=== PATIENT | female | born 1990 | race Asian ===

== ENCOUNTER 2024-09-10 02:06 | Day surgery (SDC) | payer BC, SELFPAY ==
[2024-09-04 11:29] VITALS: BMI 27.6
--- NOTE | 2024-09-04 11:36 | PC.NURSE ---
Report to the Outpatient Waiting Room, entrance under the green pavilion located off [facility], at time _1030_ on date _[id number]_. Planned Procedure Time: _1230_.? Time changes happen often and if your time is changed the preop area will call you the afternoon before. - You and your visitor will be asked to self-screen and do not enter if you have any COVID symptoms. Please call surgeon if you need to reschedule. - A mask is optional within the hospital at this time. Patients may have clear liquids (water, carbonated beverages, clear teas, apple juice) until 3 hours prior to surgery with a maximum of 20 ounces. - No food from midnight until time of surgery and no smoking Take only the following medications with a SIP of water on the morning of surgery: ___None___ DO NOT STOP ANY OF YOUR OTHER PRESCRIPTION MEDICATIONS PRIOR TO SURGERY EXCEPT THE FOLLOWING Medications to discontinue per physician ____None Date to take last dose Please no make-up, nail czech, hairspray, perfume, deodorant, or body powder the day of surgery.? No jewelry (including any body piercings) or valuables the day of surgery, leave them at home.? Please take a shower or bath the night before, or the morning of, surgery with an antibacterial soap.? Wear comfortable, loose fitting clothing.? - Jewelry must be removed prior to entering the operating room.? Rings and piercings that are not removed may be cut off. - The hospital will not accept responsibility for valuables.? - Please leave all valuables, including medications, at home the day of surgery. If you are going home after surgery, a licensed truck driver rubbish collector must drive you home.? - NO public transportation without another adult if you receive anesthesia. - We recommend that an adult stay with you for 24 hours following discharge. - We also recommend that you do not drive, make important decision, drink alcoholic beverages, or take any drugs that were not prescribed by your health care provider for at least 24 hours after your discharge time. Follow any additional instructions given to you from your surgeon. Telephone instructions given to __Violeta__and asked if any additional questions and then verbalized understanding. Patient advised to call surgeon office or pre surgery nurse liaison [phone] if any additional questions.
--- NOTE | 2024-09-09 15:33 | P.HP_ITS ---
H&P: HPI History of Present Illness Date/Time: 09/09/24 15:33 Chief Complaint: AUB Narrative: Violeta is a 33yo P1011, who presents for surgical intervention for AUB. She reports that her periods are very regular; q28-29 days. She has 1-2 days that are slightly heavy with small blood clots, but then it tapers off. But there has been twice, that she notices some mid month spotting after a strenuous workout. 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 She denies any hot flashes, night sweats. She denies any pelvic pain. SENIOR LABEL SPECIALIST US showed a type 2 submucosal fibroid measuring 1cm Review of Systems Constitutional: Constitutional: Denies chills, Denies fever(s) and Denies headache(s) Eyes: Eyes: Denies change in vision ENT: Denies dizziness and Denies headache(s) Cardiovascular: Cardiovascular: Denies chest pain and Denies dyspnea Respiratory: Respiratory: Denies cough and Denies dyspnea Gastrointestinal: Gastrointestinal: Denies abdominal pain and Denies change in stool character Genitourinary: Genitourinary: Denies abnormal menses, Reports menorrhagia, Reports dysmenorrhea, Denies pelvic pain, Denies vaginal discharge, Denies vaginal odor and Denies vaginal pruritus Neurologic: Denies dizziness and Denies headache(s) Psychiatric: Psychiatric: Denies anxiety and Denies depression [facility] Surgical History Surgical History (Updated 06/27/24 @ 10:02 by Esthela Abdullahi MA) H/O bilateral salpingectomy ~2017 History of orthopedic surgery R hand surgery Family History Family History (Updated 06/27/24 @ 10:02 by Esthela Abdullahi MA) Other Diabetes mellitus Social History Social History (Updated 06/27/24 @ 10:03 by Esthela Abdullahi MA) Smoking status: Never smoker Alcohol intake: current Alcohol use details: rarely Substance use: never Substance use type: does not use Do You Feel Safe in your Home?: Yes Lack of Transportation: No Lack of Food: Never True Current Housing: I Have Housing Concerned About Future Housing: No Difficulty Paying Gas/Electric Bills: No Difficulty Paying for Meds: No Currently Unemployed: No Education: Bachelor's Degree Difficulty w/ Childcare or Family Care: No Living arrangements: with family Occupation/Education: occupation 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 [employer] Gender identity (if verbalized by the patient): Female Sexual Orientation (if Verbalized by the Patient): Straight or Heterosexual Spiritual care concerns: No Meds Home Medications and Allergies Home Medications Medication Instructions Recorded Confirmed Type No Home Medications 06/27/24 09/04/24 History Allergies Allergy/AdvReac Type Severity Reaction Status Date / Time No Known Allergies Allergy Verified 09/04/24 11:28 Exam Const: General: cooperative, healthy appearing, comfortable and no acute distress Orientation/consciousness: patient oriented x3 Resp: Effort & Inspection: normal respiratory effort Cardio: Rate: regular rate GI: Inspection: normal to inspection GI Palp: No abdominal tenderness and Yes Soft to palpation : Other: deferred to OR Skin: General skin exam: normal color Neuro: General: patient oriented x3 Extrem: General: normal to inspection Psych: Appearance: grossly normal Affect: normal affect Attitude: cooperative Assessment and Plan Assessment and plan (1) Submucous uterine fibroid: Code(s): D25.0 - Submucous leiomyoma of uterus Status: Acute Plan - Proceed with hysteroscopic myomectomy, D&C as these types of fibroids commonly cause AUB/heavy cycles, but it is small and can easily be removed hysteroscopically - risks and benefits discussed in detail
--- NOTE | 2024-09-09 15:50 | P.PNAN_ITS ---
Anes - Eval Pre Procedure Procedure: Operation Date: 09/10/24 12:00 Proposed Procedures p Hysteroscopy Dilation and Curettage with Myomectomy - Shilpa Horton MD Date/Time: 09/09/24 15:50 Pre Op Diagnosis: uterine fibroid Patient Data Age: 33 Gender: F Height: 1.6 m Weight: 70.9 kg Allergies Allergy/AdvReac Type Severity Reaction Status Date / Time No Known Allergies Allergy Verified 09/04/24 11:28 Home Medications Medication Instructions Recorded Confirmed Type No Home Medications 06/27/24 09/04/24 History Patient hx anesthesia problems: none Family hx anesthesia problems: none Results Review: All pre-operative results and documents have been reviewed as part of the pre- operative evaluation. [facility] Surgical History Surgical History H/O bilateral salpingectomy ~2016 History of orthopedic surgery R hand surgery Family History Family History Other Diabetes mellitus Social History Social History Smoking status: Never smoker Alcohol intake: current Alcohol use details: rarely Substance use: never Substance use type: does not use Do You Feel Safe in your Home?: Yes Lack of Transportation: No Lack of Food: Never True Current Housing: I Have Housing Concerned About Future Housing: No Difficulty Paying Gas/Electric Bills: No Difficulty Paying for Meds: No Currently Unemployed: No Education: Bachelor's Degree Difficulty w/ Childcare or Family Care: No Living arrangements: with family Occupation/Education: occupation 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
--- NOTE | 2024-09-10 07:13 | WPDHPUPDATE1 ---
History and Physical Update Update Date/Time: 09/10/24 07:13 History and Physical has been reviewed, including an updated exam of the patient. There are NO changes in the patient's condition. Risks, benefits, and alternatives have been discussed and questions answered. Patient agrees to proceed with hysteroscopic myomectomy, D&C.
[2024-09-10 10:07] VITALS: BP 127/78; PULSE 68; RESP 16; TEMP 36.3; O2SAT 100
[2024-09-10] MEDS: ACETAMINOPHEN 500 MG TABLET 1000 MG PO (10:15)
[2024-09-10] MEDS: LACTATED RINGERS 1,000 ML 30 ML IV CONT (10:20)
[2024-09-10 10:22] LABS: BEDSIDEPREGUCG Negative (Negative)
--- NOTE | 2024-09-10 10:34 | WPDANESEPPF ---
Anes - Initial Pre Proc Eval Procedure: Operation Date: 09/10/24 12:00 Proposed Procedures p Hysteroscopy Dilation and Curettage with Myomectomy - Shilpa Horton MD Date/Time: 09/10/24 10:34 Surgeon: Shilpa Horton MD Pre Op Diagnosis: uterine fibroid Patient Data Age: 33 Gender: F Height: 1.6 m Weight: 74 kg Last Vital Signs Temp 36.3 C L 09/10/24 10:07 Pulse 68 09/10/24 10:07 Resp 16 09/10/24 10:07 BP 127/78 09/10/24 10:07 Pulse Ox 100 09/10/24 10:07 O2 Del Method Room Air 09/10/24 10:07 Allergies Allergy/AdvReac Type Severity Reaction Status Date / Time No Known Allergies Allergy Verified 09/10/24 10:06 Home Medications Medication Instructions Recorded Confirmed Type No Home Medications 06/27/24 09/10/24 History Laboratory Tests 09/10/24 10:20 POC Urine HCG, Qual Negative (Negative) Patient hx anesthesia problems: none Family hx anesthesia problems: none Results Review: All pre-operative results and documents have been reviewed as part of the pre-operative evaluation. [facility] Past Medical History Medical History (Updated 09/10/24 @ 10:34 by Clifford Ramsay MD) Overweight Submucous uterine fibroid Surgical History Surgical History H/O bilateral salpingectomy ~2017 History of orthopedic surgery R hand surgery Family History Family History Other Diabetes mellitus Social History Social History Smoking status: Never smoker Alcohol intake: current Alcohol use details: rarely Substance use: never Substance use type: does not use Do You Feel Safe in your Home?: Yes Lack of Transportation: No Lack of Food: Never True Current Housing: I Have Housing Concerned About Future Housing: No Difficulty Paying Gas/Electric Bills: No Difficulty Paying for Meds: No Currently Unemployed: No Education: Bachelor's Degree Difficulty w/ Childcare or Family Care: No Living arrangements: with family Occupation/Education: occupation 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 Gender identity (if verbalized by the patient): Female Sexual Orientation (if Verbalized by the Patient): Straight or Heterosexual Spiritual care concerns: No Anes - Eval Final PreProcedure Day of Procedure 09/10/24 10:34 Patient weight: overweight Heart: regular rate and rhythm Lungs: clear to auscultation Airway: Mallampati scale class II Neurological: alert and oriented Last oral intake: >/= 8 hours ASA classification: II Emergent: no Anesthetic plan: proceed Anesthesia type and monitoring: general GIVS and standard monitoring Results Review: All pre-operative results and documents have been reviewed as part of the pre-operative evaluation. Informed Consent: The patient's anesthetic plan and its attendant risks and benefits were discussed with the patient/family/POA. Questions were solicited and answers provided to the satisfaction of the patient/family/POA.
--- NOTE | 2024-09-10 12:22 | P.OP_ITS ---
Procedure Note - Detailed Date of Procedure 09/10/24 Pre-op Diagnosis AUB uterine fibroid Post-op Diagnosis Same Procedure Performed Hysteroscopy with D&C Surgeon Shilpa Horton MD Anesthesia MAC Findings thickened tissue throughout the cavity, possible polyp noted with the first curettage. bilateral tubal ostia were visualized. No myoma was visualized or palpated during the curettage. Normal cavity at the end of the case. Good hemostasis at end of case. Fluid deficit: 100cc. Description of Procedure Adithya was taken to the operating room where she was placed under sedation without complications. She was then prepped and draped in the usual sterile fa shion in the dorsal lithotomy position with her legs in low David stirrups. A time-out was performed and no perioperative antibiotics were indicated. A bivalve speculum was placed within the vagina where the cervix was easily identified. The anterior lip of the cervix was grasped with a single-tooth tenaculum. The cervix was then serially dilated to allow for the hysteroscope. The hysteroscope was advanced into the uterine cavity with the above findings noted. A curettage was then performed until a good uterine cry was felt throughout the uterus. The scope was once again advanced into the uterine cavity and additional tissue was still noted. An additional curettage was performed; no myoma was palpated when performing the curettage. The scope was once again advanced into the cavity and the cavity was normal (pictures taken). Good hemostasis was noted. All instruments were removed from the vagina. Sponge, lap, instrument, and needle counts were correct at the end of the procedure. Patient was awoken from anesthesia and taken to recovery with plans of same-day discharge home. Estimated Blood Loss 5 IV Fluids 800 Pathology Yes (endometrial curettings) Complications No immediate complications Condition Stable Disposition Same day [facility] Billing Surgery - Charge Forward: Surgery Billing
[2024-09-10 12:28] VITALS: BP 122/70; PULSE 76; RESP 16; O2SAT 99
[2024-09-10 12:55] VITALS: BP 119/77; PULSE 54; RESP 16; O2SAT 100
[2024-09-10 13:25] VITALS: BP 118/88; PULSE 63
== END 2024-09-10 13:46 | disposition home or self-care (01) ==
PROVIDERS: PCP Family Medicine; Visit Provider Obstetrics & Gynecology
PROC: 0U5B8ZZ Destruction of Endometrium, Via Natural or Artificial Opening Endoscopic (ICD-10-PCS; CPT 58563; principal; 2024-09-10 12:00)
DX: D25.0 Submucous leiomyoma of uterus (principal); Z98.890 Other specified postprocedural states
CPT/HCPCS: 58558; 88305; A9270; J2003; J2250; J2704; J3010; J7030; J7120